=== PATIENT | female | born 2000 | race Caucasian/White ===

== ENCOUNTER 2024-01-23 19:10 | Emergency (ER) | payer BC ==
[2024-01-23] MEDS: Sodium Chloride 0.9% 10 ML Syringe FLUSH PRN (19:58)
[2024-01-23] MEDS: Sodium Chloride 0.9% 1,000 ML IV ONE (19:59)
[2024-01-23 20:01] LABS: BASOPHILS PERCENT AUTO 0.5 % (0.0-1.0); EOSINOPHILS PERCENT AUTO 1.6 % (1.0-3.0); HEMATOCRIT 40.7 % (37.0-47.0); HEMOGLOBIN 13.9 g/dL (12.0-16.0); LYMPHOCYTES PERCENT AUTO 15.4 % (20.5-50.1); MEAN CORPUSCULAR HEMOGLOBIN 30.7 pg (27.0-34.0); MEAN CORPUSCULAR HGB CONC 34.2 g/dL (33.0-35.0); MEAN CORPUSCULAR VOLUME 89.8 fL (80-100); NEUTROPHILS PERCENT AUTO 70.5 % (42.2-75.2); PLATELET COUNT,PLT 357 10^3/uL (150-450); RED BLOOD CELL COUNT 4.53 10^6/uL (4.2-5.4); WHITE BLOOD CELL COUNT,WBC 10.1 10^3/uL (5.0-10.0)
[2024-01-23 20:02] LABS: APPEARANCE,URINE CLEAR (CLEAR); BILIRUBIN,URINE NEGATIVE (NEGATIVE); COLOR,URINE YELLOW (YELLOW); GLUCOSE,URINE NEGATIVE (NEGATIVE); KETONES,URINE NEGATIVE (NEGATIVE); LEUKOCYTE ESTERASE,URINE NEGATIVE (NEGATIVE); NITRITE,URINE NEGATIVE (NEGATIVE); OCCULT BLOOD,URINE TRACE-INTACT (NEGATIVE); PROTEIN,URINE TRACE (NEGATIVE); UROBILINOGEN,URINE 0.2 mg/dL (0.2-1.0)
[2024-01-23 20:10] LABS: AMORPHOUS SEDIMENT,URINE FEW /HPF (NOT SEEN); BACTERIA,URINE MODERATE /HPF (0-FEW/HPF); EPITHELIAL CELLS,URINE MODERATE /HPF (NOT SEEN); MUCUS,URINE MODERATE /LPF (NOT SEEN); RBC,URINE 0-5 /HPF (0-5); WBC,URINE 20-30 /HPF (0-5/HPF)
[2024-01-23 20:16] LABS: A/G RATIO 1.1; ALBUMIN 3.8 g/dL (3.4-5.0); ANION GAP 13.3 mEq/L (7-13); BILIRUBIN TOTAL 1.2 mg/dL (0.2-1.0); BUN/CREATININE RATIO 12.5 (No establ ref range); C-REACTIVE PROTEIN 4.31 ng/dL (<=0.50); CALCIUM 8.7 mg/dL (8.5-10.1); CREATININE 0.8 mg/dL (0.55-1.02); EST CRCL DRUG DOSING (CG) 91.24 mL/min; POTASSIUM,K 3.3 mmol/L (3.5-5.1); PROTEIN TOTAL,TP 7.3 g/dL (6.4-8.2)
[2024-01-23] MEDS: Potassium Chloride 10 MEQ Tab.ER PO ONE (20:30)
[2024-01-23 20:38] LABS: CORONAVIRUS COVID-19 NAA NEGATIVE (NEGATIVE); INFLUENZA A NAA NEGATIVE (NEGATIVE); INFLUENZA B NAA NEGATIVE (NEGATIVE)
== END 2024-01-23 20:55 | disposition home or self-care (01) ==
LOC: DL.ED 19:10
DX: M94.0 Chondrocostal junction syndrome [Tietze] (principal); Z91.040 Latex allergy status
CPT/HCPCS: 0240U; 36415; 80053; 81001; 81025; 85025; 85379; 86140; 99283; A9270; J7030; J3490

== ENCOUNTER 2025-01-30 18:16 | Emergency (ER) | payer BC ==
[2025-01-30] MEDS: Lidocaine 1% 5 ML VIAL INJECT ONE (21:55)
[2025-01-30] MEDS: Bacitracin Oint 1 GM U/D Packet TOP ONE (22:41)
== END 2025-01-30 22:56 | disposition home or self-care (01) ==
LOC: DL.ED 18:16
DX: S61.411A Laceration without foreign body of right hand, initial encounter (principal); Z87.891 Personal history of nicotine dependence; Z86.16 Personal history of COVID-19; Z88.0 Allergy status to penicillin; Z88.1 Allergy status to other antibiotic agents; Z88.8 Allergy status to other drugs, medicaments and biological substances; Z91.040 Latex allergy status; W27.4XXA Contact with kitchen utensil, initial encounter; Y92.019 Unspecified place in single-family (private) house as the place of occurrence of the external cause
CPT/HCPCS: 12002; 99282; A9270; J2003; 99283